=== PATIENT | male | born 1985 | race African-American/Black ===

== ENCOUNTER 2024-05-22 13:22 | Emergency (ER) | payer MEDICAID ==
[~2024-05-22] VITALS: Ht 180.3 cm; Wt 104.0 kg
[2024-05-22 13:24] VITALS: O2SAT 97
[2024-05-22 13:54] VITALS: BP 133/82; PULSE 85; RESP 18; O2SAT 100
== END 2024-05-22 20:47 | disposition home or self-care (01) ==
LOC: ER 13:22
DX: L25.9 Unspecified contact dermatitis, unspecified cause (principal); J45.909 Unspecified asthma, uncomplicated
CPT/HCPCS: 99281

== ENCOUNTER 2024-09-03 00:44 | Emergency (ER) | payer MEDICAID ==
[~2024-09-03] VITALS: Ht 182.9 cm; Wt 125.0 kg
[2024-09-03 00:51] VITALS: TEMP 36.9; O2SAT 99
[2024-09-03 01:36] LABS: BASOPHILS % 0.9 % (0.0-2.0); EOSINOPHILS % 4.5 % (0.0-5.0); HEMATOCRIT. 38.8 % (42.0-52.0); HEMOGLOBIN. 13.6 g/dL (14.0-18.0); LYMPHOCYTES % 43.7 % (20.0-50.0); MEAN CORPUSCULAR HEMOGLOBIN 31.6 pg (28.0-32.0); MEAN CORPUSCULAR VOLUME 90.3 fL (80.0-94.0); MEAN PLATELET VOLUME 8.2 fl (7.4-10.4); MONOCYTES % 8.2 % (2.0-8.0); NEUTROPHILS % 42.7 % (40.0-76.0); PLATELET 230 x1000/uL (130-400); WHITE BLOOD COUNT 6.1 x1000/uL (4.5-11.0)
[2024-09-03] MEDS: LEVETIRACETAM 1000MG PREMIX 100 ML IV ONE (01:40)
[2024-09-03 01:47] LABS: CHLORIDE 106 mEq/L (98-107); POTASSIUM 3.9 mEq/L (3.5-5.1); SODIUM 141 mEq/L (136-145)
[2024-09-03 01:48] LABS: CALCIUM 9.4 mg/dL (8.7-10.4); CARBON DIOXIDE 26 mEq/L (21-32)
[2024-09-03 01:53] LABS: CREATININE 1.1 mg/dL (0.6-1.3); GLUCOSE 131 mg/dL (70-105); UREA NITROGEN BLOOD 11 mg/dL (9-23)
[2024-09-03 02:01] LABS: CLARITY URINE CLEAR (CLEAR); COLOR URINE YELLOW (YELLOW); GLUCOSE URINE NEGATIVE (NEGATIVE); KETONES URINE NEGATIVE (NEGATIVE); LEUKOCYTE ESTERASE URINE NEGATIVE (NEGATIVE); NITRITE URINE NEGATIVE (NEGATIVE); OCCULT BLOOD URINE TRACE (NEGATIVE); PH URINE 5.5 (4.5-8.0); PROTEIN URINE 1+ (NEGATIVE); SPECIFIC GRAVITY URINE 1.018 (1.005-1.030); UROBILINOGEN URINE 0.2 E.U./dL (0.2-1.0)
[2024-09-03 02:10] LABS: ETHANOL BLOOD < 10 mg/dL (<10)
[2024-09-03 02:20] LABS: SQUAMOUS EPITHELIAL CELL URINE FEW /lpf (RARE/1+)
[2024-09-03 02:21] LABS: WBC URINE 0-2 /hpf (0-2)
[2024-09-03 02:22] LABS: BACTERIA URINE NONE SEEN
[2024-09-03 02:24] LABS: *AMPHETAMINES SCREEN URINE NEGATIVE (NEGATIVE); *BARBITURATES SCREEN URINE NEGATIVE (NEGATIVE); *BENZODIAZEPINES SCREEN URINE NEGATIVE (NEGATIVE); *COCAINE SCREEN URINE NEGATIVE (NEGATIVE)
[2024-09-03 02:25] LABS: CANNABINOID URINE SCREEN PRESUMPTIVE POSITIVE (NEGATIVE); ECSTASY MDMA SCREEN URINE NEGATIVE (NEGATIVE); METHADONE URINE SCREEN NEGATIVE (NEGATIVE); OPIATES URINE SCREEN NEGATIVE (NEGATIVE); PHENCYCLIDINE URINE SCREEN NEGATIVE (NEGATIVE)
[2024-09-03 03:59] VITALS: BP 150/102; PULSE 102; RESP 12; O2SAT 98
== END 2024-09-03 05:06 | disposition home or self-care (01) ==
LOC: ER 00:44
DX: G40.909 Epilepsy, unspecified, not intractable, without status epilepticus (principal); Z79.899 Other long term (current) drug therapy
CPT/HCPCS: 80305; 80048; 81003; 80320; 85025; 36415; 93005; 96365; 99284; J1953; G0480

== ENCOUNTER 2024-10-30 14:09 | Emergency (ER) | payer MEDICAID ==
[~2024-10-30] VITALS: Ht 182.9 cm; Wt 125.0 kg
[2024-10-30 14:38] VITALS: O2SAT 99
[2024-10-30 15:09] LABS: BASOPHILS % 1.3 % (0.0-2.0); EOSINOPHILS % 1.2 % (0.0-5.0); HEMATOCRIT. 40.3 % (42.0-52.0); HEMOGLOBIN. 13.5 g/dL (14.0-18.0); LYMPHOCYTES % 33.5 % (20.0-50.0); MEAN CORPUSCULAR HGB CONC 33.5 g/dL (31.0-37.0); MEAN CORPUSCULAR VOLUME 89.6 fL (80.0-94.0); MEAN PLATELET VOLUME 7.5 fl (7.4-10.4); MONOCYTES % 8.9 % (2.0-8.0); NEUTROPHILS % 55.1 % (40.0-76.0); PLATELET 267 x1000/uL (130-400); RED CELL DISTRIBUTION WIDTH 12.9 % (11.6-14.6)
[2024-10-30 15:11] LABS: CARBON DIOXIDE 29 mEq/L (21-32); CHLORIDE 103 mEq/L (98-107); SODIUM 137 mEq/L (136-145)
[2024-10-30 15:12] LABS: CALCIUM 8.9 mg/dL (8.7-10.4)
[2024-10-30 15:17] LABS: GLUCOSE 91 mg/dL (70-105); UREA NITROGEN BLOOD 7 mg/dL (9-23)
[2024-10-30] MEDS: SODIUM CHLORIDE 0.9% 1,000 ML IV ONE (16:27)
[2024-10-30] MEDS: LEVETIRACETAM 1000MG PREMIX 100 ML IV ONE (16:31)
[2024-10-30 18:44] VITALS: BP 136/98; PULSE 62; RESP 14; TEMP 37; O2SAT 99
== END 2024-10-30 18:44 | disposition home or self-care (01) ==
LOC: ER 14:09
DX: G40.909 Epilepsy, unspecified, not intractable, without status epilepticus (principal); F19.90 Other psychoactive substance use, unspecified, uncomplicated
CPT/HCPCS: 80048; 80320; 85025; 36415; 96365; 99284; J1953; J7030; Z7610 ×2; G0480

== ENCOUNTER 2024-12-25 01:41 | Emergency (ER) | payer MEDICAID ==
[~2024-12-25] VITALS: Ht 188 cm; Wt 127.0 kg
[2024-12-25 01:45] VITALS: O2SAT 98
[2024-12-25] MEDS: LEVETIRACETAM 1000MG PREMIX 100 ML IV ONE (02:42)
[2024-12-25 03:32] LABS: BASOPHILS % 1.5 % (0.0-2.0); EOSINOPHILS % 3.1 % (0.0-5.0); HEMATOCRIT. 39.9 % (42.0-52.0); HEMOGLOBIN. 13.5 g/dL (14.0-18.0); LYMPHOCYTES % 27.7 % (20.0-50.0); MEAN CORPUSCULAR HEMOGLOBIN 30.2 pg (28.0-32.0); MEAN CORPUSCULAR HGB CONC 33.9 g/dL (31.0-37.0); MEAN CORPUSCULAR VOLUME 89.1 fL (80.0-94.0); MEAN PLATELET VOLUME 8.1 fl (7.4-10.4); MONOCYTES % 9.7 % (2.0-8.0); PLATELET 217 x1000/uL (130-400); RED BLOOD CELL COUNT 4.48 mill/uL (4.7-6.1); RED CELL DISTRIBUTION WIDTH 13.4 % (11.6-14.6); WHITE BLOOD COUNT 4.6 x1000/uL (4.5-11.0)
[2024-12-25 03:45] LABS: CHLORIDE 103 mEq/L (98-107); SODIUM 138 mEq/L (136-145)
[2024-12-25 03:46] LABS: CALCIUM 8.9 mg/dL (8.7-10.4); CARBON DIOXIDE 26 mEq/L (21-32)
[2024-12-25 03:51] LABS: GLUCOSE 94 mg/dL (70-105); UREA NITROGEN BLOOD 6 mg/dL (9-23)
[2024-12-25 04:59] VITALS: BP 111/73; PULSE 58; RESP 19; TEMP 36.8; O2SAT 98
== END 2024-12-25 05:14 | disposition home or self-care (01) ==
LOC: ER 01:41
DX: G40.909 Epilepsy, unspecified, not intractable, without status epilepticus (principal); F12.90 Cannabis use, unspecified, uncomplicated; Z79.899 Other long term (current) drug therapy
CPT/HCPCS: 99284; 96365; 96366; 80048; 85025; 36415; 93005; J1953

== ENCOUNTER 2024-12-31 16:17 | Emergency (ER) | payer MEDICAID ==
[~2024-12-31] VITALS: Ht 185.4 cm; Wt 84.0 kg
[2024-12-31 16:19] VITALS: O2SAT 99
[2024-12-31 17:34] LABS: BASOPHILS % 1.1 % (0.0-2.0); EOSINOPHILS % 1.7 % (0.0-5.0); HEMATOCRIT. 45.9 % (42.0-52.0); HEMOGLOBIN. 15.4 g/dL (14.0-18.0); LYMPHOCYTES % 23.2 % (20.0-50.0); MEAN CORPUSCULAR HEMOGLOBIN 30.2 pg (28.0-32.0); MEAN CORPUSCULAR HGB CONC 33.6 g/dL (31.0-37.0); MEAN CORPUSCULAR VOLUME 89.9 fL (80.0-94.0); MEAN PLATELET VOLUME 7.7 fl (7.4-10.4); MONOCYTES % 9.7 % (2.0-8.0); NEUTROPHILS % 64.3 % (40.0-76.0); PLATELET 263 x1000/uL (130-400); RED BLOOD CELL COUNT 5.11 mill/uL (4.7-6.1); RED CELL DISTRIBUTION WIDTH 13.4 % (11.6-14.6); WHITE BLOOD COUNT 7.1 x1000/uL (4.5-11.0)
[2024-12-31 17:40] LABS: CHLORIDE 103 mEq/L (98-107); POTASSIUM 4.1 mEq/L (3.5-5.1); SODIUM 137 mEq/L (136-145)
[2024-12-31 17:41] LABS: CARBON DIOXIDE 24 mEq/L (21-32)
[2024-12-31 17:42] LABS: CALCIUM 9.6 mg/dL (8.7-10.4)
[2024-12-31 17:46] LABS: CREATININE 1.2 mg/dL (0.6-1.3); GLUCOSE 90 mg/dL (70-105)
[2024-12-31 17:47] LABS: ETHANOL BLOOD < 10 mg/dL (<10); UREA NITROGEN BLOOD 12 mg/dL (9-23)
[2024-12-31] MEDS: LEVETIRACETAM 1000MG PREMIX 100 ML IV ONE (18:03)
[2024-12-31 18:52] LABS: CLARITY URINE CLEAR (CLEAR); COLOR URINE DARK YELLOW (YELLOW); GLUCOSE URINE NEGATIVE (NEGATIVE); KETONES URINE 3+ (NEGATIVE); LEUKOCYTE ESTERASE URINE TRACE (NEGATIVE); NITRITE URINE NEGATIVE (NEGATIVE); OCCULT BLOOD URINE NEGATIVE (NEGATIVE); PH URINE 5.5 (4.5-8.0); PROTEIN URINE 1+ (NEGATIVE); SPECIFIC GRAVITY URINE 1.036 (1.005-1.030)
[2024-12-31 19:05] LABS: *AMPHETAMINES SCREEN URINE NEGATIVE (NEGATIVE); *BARBITURATES SCREEN URINE NEGATIVE (NEGATIVE); *BENZODIAZEPINES SCREEN URINE NEGATIVE (NEGATIVE); *COCAINE SCREEN URINE NEGATIVE (NEGATIVE); CANNABINOID URINE SCREEN PRESUMPTIVE POSITIVE (NEGATIVE); ECSTASY MDMA SCREEN URINE NEGATIVE (NEGATIVE); METHADONE URINE SCREEN NEGATIVE (NEGATIVE); OPIATES URINE SCREEN NEGATIVE (NEGATIVE); PHENCYCLIDINE URINE SCREEN NEGATIVE (NEGATIVE)
[2024-12-31 19:06] LABS: HYALINE CASTS URINE 0-5 /lpf
[2024-12-31 19:08] LABS: BACTERIA URINE NONE SEEN; RBC URINE NONE SEEN /hpf (0-2); SQUAMOUS EPITHELIAL CELL URINE FEW /lpf (RARE/1+); WBC URINE 0-2 /hpf (0-2)
[2024-12-31 19:12] VITALS: TEMP 37.1
[2024-12-31 20:03] VITALS: BP 130/102; PULSE 103; RESP 14; O2SAT 97
== END 2024-12-31 20:13 | disposition home or self-care (01) ==
LOC: ER 16:17
DX: G40.909 Epilepsy, unspecified, not intractable, without status epilepticus (principal); F12.90 Cannabis use, unspecified, uncomplicated
CPT/HCPCS: 80305; 80048; 81003; 80320; 85025; 36415; 96365; 99284; J1953; G0480

== ENCOUNTER 2025-02-01 00:24 | Emergency (ER) | payer OTHER ==
[~2025-02-01] VITALS: Ht 177.8 cm; Wt 127.0 kg
[~2025-02-01 00:24] MED LIST: AMLO10TA80 MT
[2025-02-01 00:32] VITALS: TEMP 36.9; O2SAT 98
[2025-02-01 01:02] VITALS: BP 106/65; PULSE 71; RESP 12; O2SAT 96
[2025-02-01] MEDS: LEVETIRACETAM 1000MG PREMIX 100 ML IV ONE (01:04)
[2025-02-01 01:10] LABS: BASOPHILS % 1.7 % (0.0-2.0); EOSINOPHILS % 4.8 % (0.0-5.0); HEMATOCRIT. 38.3 % (42.0-52.0); HEMOGLOBIN. 12.9 g/dL (14.0-18.0); LYMPHOCYTES % 41.2 % (20.0-50.0); MEAN PLATELET VOLUME 7.5 fl (7.4-10.4); MONOCYTES % 8.3 % (2.0-8.0); NEUTROPHILS % 44.0 % (40.0-76.0); PLATELET 234 x1000/uL (130-400); RED BLOOD CELL COUNT 4.23 mill/uL (4.7-6.1); RED CELL DISTRIBUTION WIDTH 13.7 % (11.6-14.6)
[2025-02-01 01:22] LABS: CREATININE 0.8 mg/dL (0.6-1.3); UREA NITROGEN BLOOD 9 mg/dL (9-23)
[2025-02-01 01:23] LABS: ETHANOL BLOOD < 10 mg/dL (<10)
[2025-02-01 01:24] LABS: ASPARTATE AMINOTRANSFERASE 12 IU/L (<34); BILIRUBIN DIRECT 0.1 mg/dL (<=3.0); PROTEIN TOTAL 6.6 g/dL (6.0-8.3)
[2025-02-01 01:25] LABS: BILIRUBIN TOTAL 0.3 mg/dL (0.1-1.0)
== END 2025-02-01 03:57 | disposition home or self-care (01) ==
LOC: ER 00:24 → CANBEDREQ 03:54 → ER 03:57
DX: G40.909 Epilepsy, unspecified, not intractable, without status epilepticus (principal); F12.10 Cannabis abuse, uncomplicated; I49.9 Cardiac arrhythmia, unspecified; Z00.00 Encounter for general adult medical examination without abnormal findings
CPT/HCPCS: 80076; 80048; 80320; 83690; 83735; 85025; 36415; 70450; 93005; 96365; 99285; J1953; G0480

== ENCOUNTER 2025-02-27 16:59 | Emergency (ER) | payer OTHER ==
[~2025-02-27] VITALS: Ht 180.3 cm; Wt 95.0 kg
[2025-02-27 17:00] VITALS: O2SAT 98
[2025-02-27] MEDS: LEVETIRACETAM 1000MG PREMIX 100 ML IV ONE (17:47)
[2025-02-27 18:50] LABS: BASOPHILS % 2.4 % (0.0-2.0); EOSINOPHILS % 2.2 % (0.0-5.0); HEMATOCRIT. 38.2 % (42.0-52.0); HEMOGLOBIN. 13.1 g/dL (14.0-18.0); LYMPHOCYTES % 27.9 % (20.0-50.0); MEAN PLATELET VOLUME 7.8 fl (7.4-10.4); MONOCYTES % 9.7 % (2.0-8.0); NEUTROPHILS % 57.8 % (40.0-76.0); PLATELET 208 x1000/uL (130-400); RED BLOOD CELL COUNT 4.25 mill/uL (4.7-6.1); RED CELL DISTRIBUTION WIDTH 13.3 % (11.6-14.6)
[2025-02-27 19:12] LABS: CREATININE 0.9 mg/dL (0.6-1.3); UREA NITROGEN BLOOD 8 mg/dL (9-23)
[2025-02-27 19:13] LABS: ETHANOL BLOOD < 10 mg/dL (<10)
[2025-02-27 21:00] VITALS: BP 155/89; PULSE 72; RESP 14; TEMP 37; O2SAT 100
[2025-02-27] MEDS: AMLODIPINE 10MG TABLET PO SCH (21:10)
== END 2025-02-27 21:10 | disposition home or self-care (01) ==
LOC: ER 16:59
DX: R56.9 Unspecified convulsions (principal); F12.90 Cannabis use, unspecified, uncomplicated
CPT/HCPCS: 80048; 80320; 85025; 36415; 93005; 96365; 96366; 99285; 82542; J1953; Z7610; G0480

== ENCOUNTER 2025-04-18 01:21 | Emergency (ER) | payer OTHER ==
[~2025-04-18] VITALS: Ht 172.7 cm; Wt 83.0 kg
[2025-04-18 01:28] VITALS: O2SAT 100
[2025-04-18] MEDS ORDERED: KEPP500 MT (01:34)
[2025-04-18 01:50] VITALS: TEMP 37
[2025-04-18] MEDS: LEVETIRACETAM 1000MG PREMIX 100 ML IV ONE (02:20)
[2025-04-18 02:40] LABS: BASOPHILS % 1.3 % (0.0-2.0); EOSINOPHILS % 4.4 % (0.0-5.0); HEMATOCRIT. 39.8 % (42.0-52.0); HEMOGLOBIN. 13.2 g/dL (14.0-18.0); LYMPHOCYTES % 32.8 % (20.0-50.0); MEAN PLATELET VOLUME 8.2 fl (7.4-10.4); MONOCYTES % 9.2 % (2.0-8.0); NEUTROPHILS % 52.3 % (40.0-76.0); PLATELET 221 x1000/uL (130-400); RED BLOOD CELL COUNT 4.44 mill/uL (4.7-6.1); RED CELL DISTRIBUTION WIDTH 13.0 % (11.6-14.6)
[2025-04-18 02:53] LABS: CREATININE 0.9 mg/dL (0.6-1.3); UREA NITROGEN BLOOD 8 mg/dL (9-23)
[2025-04-18 03:35] VITALS: BP 123/86; PULSE 73; RESP 13; O2SAT 100
== END 2025-04-18 03:37 | disposition home or self-care (01) ==
LOC: ER 01:21
DX: G40.909 Epilepsy, unspecified, not intractable, without status epilepticus (principal); F12.90 Cannabis use, unspecified, uncomplicated; Z59.00 Homelessness unspecified
CPT/HCPCS: 99284; 96365; 80048; 85025; 36415; J1953; 96374

== ENCOUNTER 2025-04-20 08:01 | Emergency (ER) | payer OTHER ==
[~2025-04-20] VITALS: Ht 185.4 cm; Wt 105.0 kg
[~2025-04-20 08:01] MED LIST changes: +KEPP500 MT
[2025-04-20 08:03] VITALS: O2SAT 99
[2025-04-20 08:26] LABS: BASOPHILS % 1.2 % (0.0-2.0); EOSINOPHILS % 3.6 % (0.0-5.0); HEMATOCRIT. 41.5 % (42.0-52.0); HEMOGLOBIN. 14.0 g/dL (14.0-18.0); LYMPHOCYTES % 39.8 % (20.0-50.0); MEAN PLATELET VOLUME 7.6 fl (7.4-10.4); MONOCYTES % 7.9 % (2.0-8.0); NEUTROPHILS % 47.5 % (40.0-76.0); PLATELET 250 x1000/uL (130-400); RED BLOOD CELL COUNT 4.59 mill/uL (4.7-6.1); RED CELL DISTRIBUTION WIDTH 13.1 % (11.6-14.6)
[2025-04-20 08:40] LABS: CREATININE 1.0 mg/dL (0.6-1.3); UREA NITROGEN BLOOD 9 mg/dL (9-23)
[2025-04-20] MEDS: LEVETIRACETAM 500MG PREMIX 100 ML IV ONE (08:41)
[2025-04-20] MEDS ORDERED: KEPP500 MT (10:28)
[2025-04-20] MEDS ORDERED: AMLO10TA80 MT (10:28)
[2025-04-20 13:51] VITALS: BP 138/91; PULSE 68; RESP 17; TEMP 36.7; O2SAT 99
== END 2025-04-20 13:55 | disposition home or self-care (01) ==
LOC: ER 08:01
DX: R56.9 Unspecified convulsions (principal); F12.90 Cannabis use, unspecified, uncomplicated
CPT/HCPCS: 99285; 96365; 80048; 85025; 36415; 93005; J1953

== ENCOUNTER 2025-05-22 05:05 | Emergency (ER) | payer OTHER ==
[~2025-05-22] VITALS: Ht 185.4 cm; Wt 110.0 kg
[2025-05-22 05:10] VITALS: O2SAT 99
[2025-05-22] MEDS: LEVETIRACETAM 1000MG PREMIX 100 ML IV ONE (05:50)
[2025-05-22 06:40] LABS: BASOPHILS % 1.2 % (0.0-2.0); EOSINOPHILS % 4.5 % (0.0-5.0); HEMATOCRIT. 39.2 % (42.0-52.0); HEMOGLOBIN. 13.2 g/dL (14.0-18.0); LYMPHOCYTES % 33.0 % (20.0-50.0); MEAN PLATELET VOLUME 7.8 fl (7.4-10.4); MONOCYTES % 8.0 % (2.0-8.0); NEUTROPHILS % 53.3 % (40.0-76.0); PLATELET 256 x1000/uL (130-400); RED BLOOD CELL COUNT 4.38 mill/uL (4.7-6.1); RED CELL DISTRIBUTION WIDTH 13.2 % (11.6-14.6)
[2025-05-22 06:55] LABS: CREATININE 0.9 mg/dL (0.6-1.3)
[2025-05-22 06:56] LABS: ETHANOL BLOOD < 10 mg/dL (<10); UREA NITROGEN BLOOD 6 mg/dL (9-23)
[2025-05-22 08:02] VITALS: BP 115/68; PULSE 78; RESP 20; TEMP 36.8; O2SAT 99
== END 2025-05-22 08:04 | disposition home or self-care (01) ==
LOC: ER 05:05
DX: R56.9 Unspecified convulsions (principal); F20.9 Schizophrenia, unspecified
CPT/HCPCS: 80048; 80320; 82962; 85025; 36415; 96365; 99284; J1953; G0480